=== PATIENT | female | born 1955 | race African-American/Black ===

== ENCOUNTER 2019-04-16 09:24 | Emergency (ER) | payer MEDICARE, SELFPAY ==
--- NOTE | ~2019-04-16 | XR_ITS ---
EXAMINATION: XR chest 2V EXAM DATE: 04/16/2019 10:39 INDICATION: Mid chest pain. TECHNIQUE: Frontal and lateral projections of the chest obtained and reviewed. Comparison is made to prior examination from 01/31/2014. FINDINGS: The lungs are clear. There are no pleural effusions. The cardiomediastinal silhouette is within normal limits. There is no pneumothorax suspected. The bones and soft tissues are unremarkab le. IMPRESSION: No acute cardiopulmonary findings. Reviewed, dictated and finalized at location B. EE
[2019-04-16 09:39] VITALS: BP 118/65; PULSE 84; RESP 18; TEMP 37.2; O2SAT 100
--- NOTE | 2019-04-16 10:23 | ECG_ITS ---
Measurements Intervals [place] Rate: 69 P: 38 NM: 146 QRS: 13 QRSD: 94 T: 0 QT: 382 QTc: 411 Interpretive Statements SINUS RHYTHM NONSPECIFIC T-WAVE ABNORMALITY- INFERIOR LEADS BORDERLINE ECG Electronically Signed On 04-16-2019 13:34:19 SULFONATION EQUIPMENT OPERATOR by Amandeep Carrasquillo D.O.
--- NOTE | 2019-04-16 10:59 | ED.GENADULT ---
HPI - General Adult General Chief complaint: Fall Stated complaint: Chest Pain Source: patient Mode of arrival: ambulatory Limitations: no limitations History of Present Illness HPI narrative: Patient is a 64-year-old female who presents for chest pain and shortness of breath. She reports slip and fall onto her back onto concrete approximately 2 days ago. She denies LOC, she denies use of blood thinners. She reports taking pain medication without relief. She reports pain is increased in left chest. No pain with palpation. She reports increased pain with deep breathing. MD complaint: Chest pain Radiation: non-radiation Related Data Home Medications Medication Instructions Recorded Confirmed amlodipine 10 mg PO DAILY 04/16/19 04/16/19 hydrochlorothiazide 25 mg PO DAILY 04/16/19 04/16/19 lisinopril 40 mg PO DAILY 04/16/19 04/16/19 meloxicam 15 mg PO DAILY 04/16/19 04/16/19 metoprolol succinate 100 mg PO DAILY 04/16/19 04/16/19 oxycodone-acetaminophen 1 tablet PO DIRECTED 04/16/19 04/16/19 topiramate 50 mg PO DAILY 04/16/19 04/16/19 Allergies Allergy/AdvReac Type Severity Reaction Status Date / Time Penicillins Allergy Unknown Itching Verified 08/18/17 08:02 Review of Systems Review of Systems: Narrative: CONSTITUTIONAL: Denies fever, chills, or sweats. EYES: Denies visual changes, redness, or discharge. ENT: Denies rhinorrhea, congestion, sore throat, or otalgia. CARDIOVASCULAR: Reports chest pain, denies palpitations, or edema. RESPIRATORY: Denies cough, reports mild dyspnea. GASTROINTESTINAL: Denies abdominal pain, nausea, vomiting, or diarrhea. GENITOURINARY: Denies dysuria or hematuria. SKIN: Denies rash or itching. MUSCULOSKELETAL: Denies back pain, joint pain, or myalgia. NEUROLOGIC: Denies headache, numbness, dizziness, or weakness. PSYCHIATRIC: Denies anxiety or depression. [facility] Past Medical History Medical History (Updated 04/16/19 @ 11:09 by SALLY Vu) Arthritis Chronic back pain HTN (hypertension) Hypercholesterolemia Postmenopausal Surgical History Surgical History (Updated 04/16/19 @ 11:07 by SALLY Vu) H/O tubal ligation Hx of cholecystectomy Hx of tonsillectomy Social History Social History (Updated 04/16/19 @ 11:07 by SALLY Vu) Smoking status: Never smoker Alcohol intake: never Substance use: never Gender identity (if verbalized by the patient): Female Exam Narrative: Exam Narrative: GENERAL: Well-appearing, well-nourished, and in no acute distress. HEAD: Normocephalic, atraumatic. EYES: EOMI. No redness or drainage. Conjunctiva are normal. ENT: Mucous membranes pink and moist. Nares clear. No rhinorrhea. TMs normal bilaterally. Throat normal. Uvula midline. NECK: AROM. Supple. No lymphadenopathy. CHEST: No respiratory distress. Clear to auscultation. HEART: Regular rate and rhythm. No murmur appreciated. Normal peripheral pulses. GI: Soft, nontender without rebound, or guarding. No distention. Bowel sounds normal in all quadrants. MUSCULOSKELETAL: No bony tenderness. EXTREMITIES: Normal range of motion. No edema. SKIN: Warm, dry, no rash. NEURO: No focal deficits. Alert and oriented x3. Gait steady. PSYCH: Normal affect. No signs of depression or anxiety. Course Vital Signs Vital signs: Vital Signs Temperature 37.2 C 04/16/19 09:39 Pulse Rate 84 04/16/19 09:39 Respiratory Rate 18 04/16/19 09:39 Blood Pressure 118/65 04/16/19 09:39 Pulse Oximetry 100 04/16/19 09:39 Temperature 37.2 C 04/16/19 09:39 Pulse Rate 84 04/16/19 09:39 Respiratory Rate 18 04/16/19 09:39 Blood Pressure 118/65 04/16/19 09:39 Pulse Oximetry 100 04/16/19 09:39 Transfer Transfered to: [facility] Transfer rationale: Higher level care, further testing Accepting physician: Dr. Cervantes Transfer comments: Patient refused EMS transport, patient reports she will drive self and personal vehicle. Patient
== END 2019-04-16 11:18 | disposition short-term general hospital (02) ==
PROVIDERS: Emergency Provider Nurse Practitioner
DX: R07.9 Chest pain, unspecified (principal); M19.90 Unspecified osteoarthritis, unspecified site; I10 Essential (primary) hypertension; E78.00 Pure hypercholesterolemia, unspecified
CPT/HCPCS: 71046; 93005; 99213; G0463

== ENCOUNTER 2019-04-16 12:16 | Emergency (ER) | payer MEDICARE, SELFPAY ==
--- NOTE | 2019-04-16 12:18 | ECG_ITS ---
Measurements Intervals [place] Rate: 72 P: 25 WV: 141 QRS: 5 QRSD: 96 T: 0 QT: 374 QTc: 412 Interpretive Statements SINUS RHYTHM NONSPECIFIC T-WAVE ABNORMALITY- ANT/INF LEADS BASELINE ARTIFACT- I, II, III, AVR, AVL, AVF, V1 BORDERLINE ECG Electronically Signed On 04-16-2019 13:52:55 MANAGER ACTUARIAL by Amandeep Carrasquillo D.O.
[2019-04-16 12:26] VITALS: BP 135/80; PULSE 72; RESP 16; TEMP 36.8; O2SAT 99
[2019-04-16 12:39] LABS: Basophils Percent Auto 0.2 % (0.2-1.2); Eosinophils Percent Auto 0.2 % (0-4.4); Hemoglobin 12.5 g/dL (12.0-15.0); Immature Granulocyte Absolute 0.04 K/mm3 (0.00-0.031); Immature Granulocyte Percent A 0.4 % (0-0.5); Lymphocytes Absolute Auto 1.09 K/mm3 (0.9-3.2); Lymphocytes Percent Auto 10.3 % (18.3-44.2); Mean Corpuscular HGB Conc 32.9 g/dl (32-36); Mean Corpuscular Hemoglobin 30.4 pg (26-34); Mean Corpuscular Volume 92.5 fl (80-100); Mean Platelet Volume 11.3 fl (7.4-10.4); Monocytes Percent Auto 9.7 % (2.6-8.5); Neutrophils Absolute Auto 8.4 K/mm3 (1.3-6.7); Neutrophils Percent Auto 79.2 % (45.5-73.1); Platelet Count Result 298 k/mm3 (150-375); Red Blood Count 4.11 M/mm3 (4.2-5.4); Red Cell Distribution Width 14.8 % (11.5-14.5); White Blood Count 10.6 K/mm3 (4.5-10.0)
[2019-04-16 12:41] LABS: INR 0.9; Prothrombin Time 12.1 Seconds (11.1-14.7)
[2019-04-16 12:42] LABS: Partial Thromboplastin Time 32.6 SECONDS (22.3-36.8)
[2019-04-16 12:44] LABS: Blood Urea Nitrogen 29 mg/dL (7-17); Calcium 9.5 mg/dL (8.4-10.2); Carbon Dioxide 27 mmol/L (22-30); Chloride 100 mmol/L (98-107); Estimated CRCL calculation 50 ml/min; Estimated Glomerular Filt Rate 60; Glucose 120 mg/dL (65-105); Potassium 3.4 mmol/L (3.4-5.0); Sodium 141 mmol/L (137-145)
[2019-04-16 12:55] LABS: Troponin I < 0.012 ng/mL (0.000-0.034)
--- NOTE | 2019-04-16 13:02 | PC.NURSE ---
pt looking for her phone - pt took shuttle to front of hospital to her truck to look for her phone. Awaiting for her to arrive back to ER waiting room.
--- NOTE | 2019-04-16 15:13 | PC.NURSE ---
1415: Pt called multiple times with no answer
== END 2019-04-16 15:13 | disposition left against medical advice (07) ==
PROVIDERS: Emergency Provider Emergency Medicine; PCP Family Medicine
DX: R06.02 Shortness of breath (principal)
CPT/HCPCS: 36415; 80048; 84484; 85025; 85610; 85730; 93005; 99199

== ENCOUNTER → 2019-10-09 09:42 | Outpatient (CLI) | payer MEDICARE, SELFPAY ==
--- NOTE | ~2019-10-09 | MM_ITS ---
EXAMINATION: MM screening dipti BI w prisca HISTORY: Screening mammogram TECHNIQUE: Craniocaudal and mediolateral oblique 3-D tomosynthesis images were obtained and synthetic 2-D images were generated. CAD analysis was submitted and interpreted. COMPARISON: 10/14/2015 bilateral digital screening mammogram BREAST PARENCHYMAL COMPOSITION: There are scattered areas of fibroglandular density. FINDINGS: There is no evidence of suspicious mass, calcification, or architectural distortion to sugg est malignancy in either breast. There has been no suspicious interval change. IMPRESSION: 1. No mammographic evidence of malignancy. 2. Recommend routine screening mammography in one year. BI-RADS Category 1: Negative Reviewed, dictated and finalized at location A.
--- NOTE | ~2019-10-09 | DEXA_ITS ---
Bone Density Report Name: Flavio Carranza Age: 64 Sex: Female Ethnicity: White Date of : 1955 Indication: postmenopausal; screening for osteoporosis; Referring Provider: Candida, Alycia Study: Bone densitometry was performed. Exam Date: October 09, 2019 Accession number: [id number] Bone Density: Region BMD T-score Z-score Classification AP Spine (L1-L4) 0.848 -1.8 0.0 Osteopenia Femoral Neck (Left) 0.986 1.2 2.8 Normal Total Hip (Left) 0.763 -1.5 -0.2 Osteopenia Femoral Neck (Right) 0.735 -1.0 0.5 Normal Total Hip (Right) 0.772 -1.4 -0.1 Osteopenia Total Hip Mean 0.768 -1.5 -0.2 Osteopenia World Health Organization criteria for BMD impression classify patients as: Normal (T-score at or above -1.0), Osteopenia (T-score between -1.0 and -2.5), or Osteoporosis (T-score at or below -2.5). 10-year Fracture Risk(1): Major Osteoporotic Fracture 7.3% Hip Fracture 0.5% Reported Risk Factors: [place] (), Neck BMD=0.735, BMI=38.2 (1) FRAX(R) Version 3.08. Fracture probability calculated for an untreated patient. Fracture probability may be lower if the patient has received treatment. Clinical Information Provided by Patient: Has used the following medications: Vitamin D, Calcium Patient maximum height was 63 Menopause Age: 54 No regular weight bearing exercise Does not regularly consume dairy products Drinks caffeinated beverages Onset of menses at age 12 Number of children 2 Impression: The patient has low bone mass, based on the Total Spine T-score. The patient has an estimated ten-year risk of hip fracture of 0.5% and an estimated ten-year risk of major fracture of 7.3%, based on the WHO FRAX algorithm. Discussion: BONE DENSITY IS LOW AT ONE OR MORE SKELETAL SITES. This patient's lowest T-score is low at one or more skeletal sites. It meets the World Health Organization's (WHO) criteria for ?low bone mass? (T-score between -1.0 and -2.5). The patient's 10-year risk of fracture as calculated by FRAX is less than the threshold where pharmacological therapy is recommended by the National Osteoporosis Foundation (NOF). However, all treatment decisions require clinical judgment and consideration of individual patient factors, including patient preferences, comorbidities, previous drug use, risk factors not captured in the FRAX model (e.g., frailty, falls, vitamin D deficiency, increased bone turnover, interval significant decline in bone density) and possible under or overestimation of fracture risk by FRAX. The patient should follow a healthful lifestyle (good nutrition with adequate calcium and vitamin D, and appropriate weight-bearing exercise). Follow-Up: Consider repeating this study in 2 to 3 years to reassess this patient's status, or sooner if there is some new clinical indication.
== END ==
PROVIDERS: PCP Student in an Organized Health Care Education/Training Program; Visit Provider Registered Nurse
DX: Z12.31 Encounter for screening mammogram for malignant neoplasm of breast (principal); Z78.0 Asymptomatic menopausal state; M85.88 Other specified disorders of bone density and structure, other site; M85.852 Other specified disorders of bone density and structure, left thigh; M85.851 Other specified disorders of bone density and structure, right thigh
CPT/HCPCS: 77063; 77067; 77080

== ENCOUNTER → 2020-08-30 10:18 | Outpatient (CLI) | payer MEDICARE, SELFPAY ==
--- NOTE | ~2020-08-30 | US_ITS ---
EXAMINATION: US right upper quadrant DATE: 08/30/2020 10:45 INDICATION: Abnormal liver function tests. TECHNIQUE: Multiple grayscale and Doppler ultrasound images of the abdomen were obtained. COMPARISON: None FINDINGS: The visualized portions of the head and body of the pancreas are normal. The liver is maya l without focal lesion. No liver surface nodularity. There is normal flow in main portal vein. The ga llbladder is absent. The common duct is normal and measures 7 mm. IMPRESSION: 1. Normal right upper quadrant ultrasound status post cholecystectomy. Reviewed, dictated and finalized at location A.
== END ==
PROVIDERS: Visit Provider Student in an Organized Health Care Education/Training Program
DX: R74.8 Abnormal levels of other serum enzymes (principal)
CPT/HCPCS: 76705

== ENCOUNTER → 2020-10-29 12:50 | Outpatient (CLI) | payer MEDICARE, SELFPAY ==
--- NOTE | ~2020-10-29 | MM_ITS ---
EXAMINATION: MM screening dipti BI w prisca HISTORY: Screening mammogram TECHNIQUE: Craniocaudal and mediolateral oblique 3-D tomosynthesis images were obtained and synthetic 2-D images were generated. CAD analysis was submitted and interpreted. COMPARISON: 10/09/2019, 10/14/2015 bilateral digital screening mammogram examinations BREAST PARENCHYMAL COMPOSITION: The breasts are almost entirely fatty. FINDINGS: There is no evidence of suspicious mass, calcification, or architectural distortion to sugg est malignancy in either breast. There has been no suspicious interval change. IMPRESSION: 1. No mammographic evidence of malignancy. 2. Recommend routine screening mammography in one year. BI-RADS Category 1: Negative Reviewed, dictated and finalized at location A.
== END ==
PROVIDERS: PCP Student in an Organized Health Care Education/Training Program; Visit Provider Student in an Organized Health Care Education/Training Program
DX: Z12.31 Encounter for screening mammogram for malignant neoplasm of breast (principal)
CPT/HCPCS: 77063; 77067

== ENCOUNTER → 2022-01-08 09:44 | Outpatient (CLI) | payer MEDICARE, SELFPAY ==
--- NOTE | ~2022-01-08 | MM_ITS ---
EXAMINATION: MM screening dipti BI w prisca HISTORY: Screening TECHNIQUE: Craniocaudal and mediolateral oblique 3-D tomosynthesis images were obtained and synthetic 2-D images were generated. CAD analysis was submitted and interpreted. COMPARISON: Comparison to multiple prior studies sequentially, with oldest reviewed study dated 10/13. BREAST PARENCHYMAL COMPOSITION: There are scattered areas of fibroglandular density. FINDINGS: There is no evidence of suspicious mass, calcification, or architectural distortion to sugg est malignancy in either breast. There has been no suspicious interval change. IMPRESSION: 1. No mammographic evidence of malignancy. 2. Recommend routine screening mammography in one year. BI-RADS Category 1: Negative Reviewed, dictated and finalized at location A. ER INFLATED PAD
== END ==
PROVIDERS: PCP Student in an Organized Health Care Education/Training Program; Visit Provider Student in an Organized Health Care Education/Training Program
DX: Z12.31 Encounter for screening mammogram for malignant neoplasm of breast (principal)
CPT/HCPCS: 77063; 77067

== ENCOUNTER → 2022-10-12 14:29 | Outpatient (CLI) | payer MEDICARE, SELFPAY ==
--- NOTE | ~2022-10-12 | DEXA_ITS ---
Bone Density Report Name: MARLEY ANN Age: 67 Sex: Female Ethnicity: Black Date of : 1955 Indication: osteopenia; prior fracture; postmenopausal Referring Provider: Vicky, Ignacio Study: Bone densitometry was performed. Exam Date: October 12, 2022 Accession number: [id number] Bone Density: Region BMD T-score Z-score Classification AP Spine (L1-L4) 0.850 -1.8 -0.5 Osteopenia Femoral Neck (Left) 0.830 -0.2 0.5 Normal Total Hip (Left) 0.782 -1.3 -0.5 Osteopenia Femoral Neck (Right) 0.728 -1.1 -0.2 Osteopenia Total Hip (Right) 0.779 -1.3 -0.5 Osteopenia Total Hip Mean 0.781 -1.3 -0.5 Osteopenia World Health Organization criteria for BMD impression classify patients as: Normal (T-score at or above -1.0), Osteopenia (T-score between -1.0 and -2.5), or Osteoporosis (T-score at or below -2.5). 10-year Fracture Risk(1): Major Osteoporotic Fracture 13% Hip Fracture 1.1% Reported Risk Factors: [place] (), Neck BMD=0.728, BMI=38.3, previous fracture (1) FRAX(R) Version 3.08. Fracture probability calculated for an untreated patient. Fracture probability may be lower if the patient has received treatment. Previous Exams: Region Exam Age BMD T-score BMD Change BMD Change Date g/cm2 vs Baseline vs Previous AP Spine(L1-L4) 10/12/2022 67 0.850 -1.8 0.002 0.002 10/09/2019 64 0.848 -1.8 Total Hip(Left) 10/12/2022 67 0.782 -1.3 0.018 0.018 10/09/2019 64 0.763 -1.5 Total Hip(Right) 10/12/2022 67 0.779 -1.3 0.008 0.008 10/09/2019 64 0.772 -1.4 *Denotes significance at 95% confidence level, LSC for AP Spine = 0.022 g/cm2, LSC for Total Hip = 0.027 g/cm2 Clinical Information Provided by Patient: Has had a low trauma fracture Has used the following medications: Vitamin D, Calcium, MTV Patient maximum height was 63.0 Menopause Age: 54 No regular weight bearing exercise Onset of menses at age 12 Number of children 2 Impression: The patient has low bone mass, based on the Total Spine T-score. The patient has an estimated ten-year risk of hip fracture of 1.1% and an estimated ten-year risk of major fracture of 13%, based on the WHO FRAX algorithm. The patient has risk factors, including: previous fracture. No significant bone loss was observed. Discussion: BONE DENSITY IS LOW AT ONE OR MORE SKELETAL SITES. This patient's lowest T-score is low at one or more sk
== END ==
PROVIDERS: PCP Student in an Organized Health Care Education/Training Program; Visit Provider Student in an Organized Health Care Education/Training Program
DX: Z78.0 Asymptomatic menopausal state (principal); M85.88 Other specified disorders of bone density and structure, other site; M85.852 Other specified disorders of bone density and structure, left thigh; M85.851 Other specified disorders of bone density and structure, right thigh
CPT/HCPCS: 77080

== ENCOUNTER → 2023-02-25 10:06 | Outpatient (CLI) | payer MEDICARE, SELFPAY ==
--- NOTE | ~2023-02-25 | MM_ITS ---
EXAMINATION: MM screening [facility] BI w prisca HISTORY: Screening mammogram TECHNIQUE: Craniocaudal and mediolateral oblique 3-D tomosynthesis images were obtained and synthetic 2-D images were generated. CAD analysis was submitted and interpreted. COMPARISON: 01/08/2022, 10/29/2020, 10/09/2019 BREAST PARENCHYMAL COMPOSITION: There are scattered areas of fibroglandular density. FINDINGS: No suspicious mass, calcification, or architectural distortion are identified in either trevon ast to suggest malignancy. There has been no suspicious interval change. IMPRESSION: 1. No mammographic evidence of malignancy. 2. Recommend routine screening mammography in one year. BI-RADS Category 1: Negative Reviewed, dictated and finalized at location A. T CANNER
== END ==
PROVIDERS: PCP Student in an Organized Health Care Education/Training Program; Visit Provider Student in an Organized Health Care Education/Training Program
DX: Z12.31 Encounter for screening mammogram for malignant neoplasm of breast (principal)
CPT/HCPCS: 77063; 77067

== ENCOUNTER 2023-03-23 08:54 | Day surgery (SDC) | payer MEDICARE, SELFPAY ==
[2023-03-03 09:15] VITALS: BMI 37.2
[2023-03-23 10:09] VITALS: BP 167/89; PULSE 106; RESP 18; TEMP 37.2; O2SAT 100; BMI 40.6
[2023-03-23] MEDS: LACTATED RINGERS 1,000 ML 150 ML IV CONT (10:24)
--- NOTE | 2023-03-23 10:24 | WPDANESEPPF ---
Anes - Initial Pre Proc Eval Procedure: Operation Date: 03/23/23 11:30 Proposed Procedures p Colonoscopy - Brandt Cleveland MD Date/Time: 03/23/23 10:24 Surgeon: Brandt Cleveland MD Pre Op Diagnosis: History of Colon Polyps Patient Data Age: 67 Gender: F Height: 1.6 m Weight: 104 kg Last Vital Signs Temp 37.2 C 03/23/23 10:09 Pulse 106 H 03/23/23 10:09 Resp 18 03/23/23 10:09 BP 167/89 H 03/23/23 10:09 Pulse Ox 100 03/23/23 10:09 O2 Del Method Room Air 03/23/23 10:09 Allergies Allergy/AdvReac Type Severity Reaction Status Date / Time clindamycin Allergy Unknown Rash Verified 03/23/23 10:06 Penicillins Allergy Unknown Itching Verified 03/23/23 10:06 Home Medications Medication Instructions Recorded Confirmed Type amlodipine 10 mg tablet 10 mg PO DAILY 04/16/19 03/23/23 History hydrochlorothiazide 25 mg tablet 25 mg PO DAILY 04/16/19 03/23/23 History meloxicam 15 mg tablet 15 mg PO DAILY 04/16/19 03/23/23 History metoprolol succinate 100 mg 100 mg PO DAILY 04/16/19 03/23/23 History tablet,extended release 24 hr oxycodone-acetaminophen 5 mg-325 1 tablet PO DIRECTED 04/16/19 03/23/23 History mg tablet topiramate 50 mg tablet 50 mg PO DAILY 04/16/19 03/23/23 History Patient hx anesthesia problems: none Family hx anesthesia problems: none Results Review: All pre-operative results and documents have been reviewed as part of the pre-operative evaluation. [facility] Past Medical History Medical History (Updated 04/17/19 @ 00:00 by Jayla Landers) Arthritis Chronic back pain HTN (hypertension) Hypercholesterolemia Postmenopausal Surgical History Surgical History (Updated 04/16/19 @ 11:07 by Elizabeth Cardoso, ENTRY LEVEL ACCOUNT MANAGER) H/O tubal ligation Hx of cholecystectomy Hx of tonsillectomy Social History Social History (Updated 04/16/19 @ 11:07 by Elizabeth Cardoso, ENTRY LEVEL ACCOUNT MANAGER) Smoking status: Never smoker Alcohol intake: never Substance use: never Substance use type: does not use Gender identity (if verbalized by the patient): Female Spiritual care concerns: No Anes - Eval Final PreProcedure Day of Procedure 03/23/23 10:24 Patient weight: morbidly obese Heart: regular rate and rhythm Lungs: clear to auscultation Airway: Mallampati scale class II Neurological: alert and oriented Last oral intake: >/= 8 hours ASA classification: III Emergent: no Anesthetic plan: proceed Anesthesia type and monitoring: general GIVS and standard monitoring Results Review: All pre-operative results and documents have been reviewed as part of the pre-operative evaluation. Informed Consent: The patient's anesthetic plan and its attendant risks and benefits were discussed with the patient/family/POA. Questions were solicited and answers provided to the satisfaction of the patient/family/POA.
--- NOTE | 2023-03-23 10:44 | PM.HPGS ---
History of Present Illness History of Present Illness Consent: Risks, benefits, and alternatives have been discussed and questions answered. Patient agrees to proceed with procedure. Chief complaint: History of Colon Polyps Narrative: Flavio Carranza is a 67 year old female presents for screening colonoscopy. Patient found to have adenomatous colon polyp at previous colonoscopy in 2018. Patient reports her current weight appetite and bowel movements are normal. Patient denies abdominal pain. She has had no bleeding. Family history significant that her sister was found to have intra-abdominal cancer of uncertain primary. Review of Systems Review of Systems: Review of systems noncontributory. [facility] Past Medical History Medical History (Updated 03/23/23 @ 10:46 by Brandt Cleveland MD) Arthritis Chronic back pain HTN (hypertension) Hypercholesterolemia Postmenopausal Surgical History Surgical History (Updated 04/16/19 @ 11:07 by Elizabeth Cardoso, STRATEGIC PARTNER DEVELOPMENT MANAGER) H/O tubal ligation Hx of cholecystectomy Hx of tonsillectomy Social History Social History (Updated 04/16/19 @ 11:07 by Elizabeth Cardoso, STRATEGIC PARTNER DEVELOPMENT MANAGER) Smoking status: Never smoker Alcohol intake: never Substance use: never Substance use type: does not use Gender identity (if verbalized by the patient): Female Spiritual care concerns: No Meds Home Medications and Allergies Home Medications Medication Instructions Recorded Confirmed Type amlodipine 10 mg tablet 10 mg PO DAILY 04/16/19 03/23/23 History hydrochlorothiazide 25 mg tablet 25 mg PO DAILY 04/16/19 03/23/23 History meloxicam 15 mg tablet 15 mg PO DAILY 04/16/19 03/23/23 History metoprolol succinate 100 mg 100 mg PO DAILY 04/16/19 03/23/23 History tablet,extended release 24 hr oxycodone-acetaminophen 5 mg-325 1 tablet PO DIRECTED 04/16/19 03/23/23 History mg tablet topiramate 50 mg tablet 50 mg PO DAILY 04/16/19 03/23/23 History Allergies Allergy/AdvReac Type Severity Reaction Status Date / Time clindamycin Allergy Unknown Rash Verified 03/23/23 10:06 Penicillins Allergy Unknown Itching Verified 03/23/23 10:06 Vital Signs Vital Signs - 24 hr 03/23/23 10:09 Temperature 98.9 F Pulse Rate 106 H Respiratory Rate 18 Blood Pressure 167/89 H Pulse Oximetry 100 Oxygen Delivery Room Air Exam Narrative: Physical exam reveals patient to be alert. Vital signs stable. HEENT is unremarkable. Patient is anicteric. Lungs are clear to auscultation and percussion. Heart is without murmur or extra sounds. Abdomen bowel sounds are present soft nontender with no organomegaly. Digital external rectal exam normal. Assessment and Plan Assessment and plan (1) History of colon polyps: Code(s): Z86.010 - Personal history of colonic polyps Status: Acute Assessment and Plan: Patient has a history of colon polyps. Plan for surveillance colonoscopy now and consider this at 5 year intervals.
[2023-03-23] MEDS: SIMETHICONE ORAL SUSPENSION 20 MG/0.3 ML 30 ML BOTTLE 0.6 ML IRRIGATION (11:28)
[2023-03-23 11:37] VITALS: BP 111/66; PULSE 99; RESP 16; O2SAT 100
[2023-03-23 11:47] VITALS: BP 112/59; PULSE 97; RESP 20; O2SAT 100
[2023-03-23 11:57] VITALS: BP 102/51; PULSE 92; RESP 20; O2SAT 100
--- NOTE | 2023-03-23 11:58 | WPDANESPN ---
Anes - Prog Note Post-Op Date/Time: 03/23/23 11:58 Cardiovascular status: normal Respiratory status: normal Airway patency: baseline Mental status: baseline Post-Op hydration status: normal Vital Signs: Last Vital Signs Temp 37.2 C 03/23/23 10:09 Pulse 97 03/23/23 11:47 Resp 20 03/23/23 11:47 BP 112/59 L 03/23/23 11:47 Pulse Ox 100 03/23/23 11:47 O2 Del Method Room Air 03/23/23 11:47 Pain Score (VAS): 0 I/O: Intake & Output 03/22/23 03/23/23 03/23/23 23:59 07:59 15:59 Intake Total 300 Balance 300 Post-procedural complaints: none Patient Feedback: Patient satisfied with anesthetic care. Other Findings: Patient vital signs back to baseline. Patient denies nausea and vomiting. Patient's pain under control. Patient OK for discharge.
== END 2023-03-23 12:09 | disposition home or self-care (01) ==
PROVIDERS: PCP Student in an Organized Health Care Education/Training Program; Visit Provider Internal Medicine Gastroenterology
PROC: 0DJD8ZZ Inspection of Lower Intestinal Tract, Via Natural or Artificial Opening Endoscopic (ICD-10-PCS; CPT 45378; principal; 2023-03-23 11:30)
DX: Z86.010 Personal history of colon polyps (principal); K64.8 Other hemorrhoids
CPT/HCPCS: 45378

== ENCOUNTER 2024-04-30 09:28 | Outpatient (CLI) | payer MEDICARE, SELFPAY ==
--- NOTE | ~2024-04-30 | MM_ITS ---
EXAMINATION: MM screening dipti BI w prisca HISTORY: Screening mammogram TECHNIQUE: Craniocaudal and mediolateral oblique 3-D tomosynthesis images were obtained and synthetic 2-D images were generated. CAD analysis was submitted and interpreted. COMPARISON: 02/25/2023, 01/08/2022, 10/29/2020 BREAST PARENCHYMAL COMPOSITION:Not Dense. The breasts are almost entirely fatty FINDINGS: No suspicious mass, calcification, or architectural distortion are identified in either trevon ast to suggest malignancy. There has been no suspicious interval change. IMPRESSION: No mammographic evidence of malignancy. Recommend routine screening mammography in one year. BI-RADS Category 1: Negative Reviewed, dictated and finalized at location .
== END 2024-04-30 09:29 | disposition home or self-care (01) ==
LOC: MICIMG 09:29
PROVIDERS: PCP Student in an Organized Health Care Education/Training Program; Visit Provider Student in an Organized Health Care Education/Training Program
DX: Z12.31 Encounter for screening mammogram for malignant neoplasm of breast (principal)
CPT/HCPCS: 77063; 77067

== ENCOUNTER 2025-01-10 13:53 | Outpatient (CLI) | payer MEDICARE, SELFPAY ==
[2025-01-10 14:53] LABS: Albumin Level 4.1 g/dL (3.5-5.1); Anion Gap 8 mmol/L (4-12); Blood Urea Nitrogen 17 mg/dL (7-17); Calcium 9.4 mg/dL (8.4-10.2); Carbon Dioxide 22 mmol/L (22-30); Chloride 111 mmol/L (98-107); Creatine Kinase 51 U/L (30-135); Estimated Glomerular Filt Rate 49; Glucose 103 mg/dL (65-110); Hematocrit 38.3 % (37.0-47.0); Hemoglobin 12.0 g/dL (12.0-15.0); Mean Corpuscular HGB Conc 31.3 g/dl (32-36); Mean Corpuscular Hemoglobin 28.9 pg (26-34); Mean Corpuscular Volume 92.3 fl (80-100); Platelet Count Result 299 k/mm3 (150-375); Potassium 3.5 mmol/L (3.4-5.0); Red Blood Count 4.15 M/mm3 (4.2-5.4); Sodium 141 mmol/L (137-145); White Blood Count 8.1 K/mm3 (4.5-10.0)
[2025-01-10 15:05] LABS: Parathyroid Intact 46.3 pg/mL (14.5-75.2)
[2025-01-10 15:19] LABS: Add Urine Microscopic? YES; Appearance Urine Cloudy (Clear); Glucose Urine UA Negative (Negative); Leukocyte Esterase Ur 3+ LEU/UL (Negative); Nitrate Urine Negative (Negative); Non Pathogenic Casts 0-2; Specific Grav Ur 1.021 (1.001-1.035)
[2025-01-10 17:30] LABS: Total Protein Urine Random 21 mg/dL; Ur Ttl Prot Creatinine Ratio 0.07 mg/mg (0-0.20)
[2025-01-11 13:09] LABS: ANA by IFA Rfx Titer/Pattern Negative (.)
[2025-01-15 09:08] LABS: Immunoglobulin A, Qn 192 mg/dL (87-352); Immunoglobulin G, Qn 1277 mg/dL (586-1602); Immunoglobulin M, Qn 226 mg/dL (26-217)
== END 2025-01-10 13:54 | disposition home or self-care (01) ==
PROVIDERS: PCP Student in an Organized Health Care Education/Training Program; Visit Provider Internal Medicine Nephrology
DX: R94.4 Abnormal results of kidney function studies (principal)
CPT/HCPCS: 36415; 80069; 81001; 82550; 82570; 82784; 83970; 84156; 85027; 85652; 86038; 86160; 86162; 86334; 86335

== ENCOUNTER 2025-01-16 07:56 | Outpatient (CLI) | payer MEDICARE, SELFPAY ==
--- NOTE | ~2025-01-16 | US_ITS ---
EXAMINATION: US renal BI, 01/16/2025 8:05 [employer] HISTORY: R94.4 - Abnormal results of kidney function studies Comparison: None Technique: Santana-scale and color Doppler images were obtained. Findings: KIDNEYS: The renal cortices are intact with no solid masses or cysts. Right Kidney: Right kidney 9.5 x 4.8 x 4.5 cm, normal. Left Kidney: Left kidney 8.7 x 4.9 x 5 cm, mid pole renal calculus 8 x 4 x 8 mm, no hydronephrosis. Bladder: The bladder is unremarkable. . Impression: 1. Left renal calculus Reviewed, dictated and finalized at location P. [employer] Impression: 1. Left renal calculus
--- OUTSIDE RECORDS SUMMARY | 2025-01-16 08:03 | XMS_ITS | Data Portability ---
Author Organization NATY QUENTINLauren Maravilla Address [address] [place] [address] Assessment No assessment recorded. Plan of Treatment Reminders Order Date Submit Date Provider Last Modified By Organization Details Last Modified Time Details Appointments None recorded. Lab pap, IG + HPV, cervical 2015 016 [facility], [address], [address], [place], [address], 6 06:05:25 bacterial vaginosis + vaginitis panel, vaginal 2015 016 [facility], [address], [address], [place], [address], 6 16:08:08 Referral None recorded. Procedures None recorded. Surgeries None recorded. Imaging None recorded. Medication Orders None recorded. Patient TargetsNo targets recorded. Patient InstructionsNo instructions recorded. Reason for Referral None Reported. Results Created Date Observation Date Name Description Value Unit Range Abnormal Flag Note LastModifiedBy Organization Detail LastModifiedTime 07/09/19 16 07/13/2015 bacte rial vagin osis + vagin itis panel , vagin al atopobium vaginae LOW - 0 score Not Available [facility] ([facility]) [address] [facility], [place], [address], 07/13/2015 16:08:08 07/09/19 16 07/13/2015 bacte rial vagin osis + vagin itis panel , vagin al bvab 2 LOW - 0 score Not Available [facility] ([facility]) [address] [place], [address], 07/13/2015 16:08:08 07/09/19 16 07/13/2015 bacte rial vagin osis + vagin itis panel , vagin al megasphaera 1 LOW - 0 score CALCU LATE TOTAL SCORE BY SUSANNE Mayorga THE 3 INDIV IDUAL BACTE RIAL VAGIN OSIS (BV) MARKE R SCORE S TOGET HER. TOTAL SCORE IS INTER PRETE D FOLLO WS: TOTAL SCORE 0-1: INDIC ATES THE ABSEN CE OF BV. TOTAL SCORE 2: INDET ERMIN ATE FOR BV. ADDIT IONAL CLINI FIORELLA DATA SHOUL D BE EVALU ATED TO ESTAB AIDA A DIAGN OSIS. TOTAL SCORE 3-6: INDIC ATES THE PRESE NCE OF BV. THIS TEST WAS DEVEL OPED AND ITS PERFO RMANC E BROOKE CTERI STICS DETER MINED BY [facility]. IT HAS NOT BEEN CLEAR ED OR APPRO TARYN BY THE FOOD AND DRUG ADMIN ISTRA TION. THE FDA HAS DETER MINED THAT SUCH CLEAR ANCE OR APPRO KADE IS NOT NECES CONCHA. Not Available [facility] ([facility]) [address] [facility], [place], [address], 07/13/2015 16:08:08 07/09/19 16 07/13/2015 bacte rial vagin osis + vagin itis panel , vagin al stacia albicans, PAT NEGATI VE negati ve Not Available [facility] ([facility]) [address] [facility], [place], [address], 07/13/2015 16:08:08 07/09/19 16 07/13/2015 bacte rial vagin osis + vagin itis panel , vagin al stacia glabrata, PAT NEGATI VE negati ve THIS TEST WAS DEVEL OPED AND ITS PERFO RMANC E BROOKE CTERI STICS DETER MINED BY [facility]. IT HAS NOT BEEN CLEAR ED OR APPRO TARYN BY THE FOOD AND DRUG ADMIN ISTRA TION. THE FDA HAS DETER MINED THAT SUCH CLEAR ANCE OR APPRO KADE IS NOT NECES CONCHA. Not Available [facility] ([facility]) [address] [facility], [place], [address], 07/13/2015 16:08:08 07/09/19 16 07/13/2015 bacte rial vagin osis + vagin itis panel , vagin al trich vag by PAT NEGATI VE negati ve Not Available [facility] ([facility]) [address] [place], [address], 07/13/2015 16:08:08 07/09/19 16 07/13/2015 bacte rial vagin osis + vagin itis panel , vagin al chlamydia trachomatis, PAT NEGATI VE negati ve Not Available [facility] ([facility]) [address] [facility], [place], [address], 07/13/2015 16:08:08 07/09/19 16 07/13/2015 bacte rial vagin osis + vagin itis panel , vagin al neisseria gonorrhoeae, PAT NEGATI VE negati ve Not Available [facility] ([facility]) [address] [place], [address], 07/13/2015 16:08:08 07/10/19 16 07/14/2015 pap, IG + HPV, cervi fiorella diagnosis: COMMEN T NEGAT ISAIAS FOR INTRA EPITH ELIAL LESIO N AND MALOSCAR PRIETO . CELLU LAR DYER ES ASSOC IATED WITH ATROP HY ARE PRESE NT. Not Available [facility] ([facility]) [address] [place], [address], 07/15/2015 06:05:25 07/10/19 16 07/14/2015 pap, IG + HPV, cervi fiorella specimen adequacy: COMMEN T SATIS FACTO RY FOR EVALU ATION . ENDOC ERVIC AL COMPO NENT MAY NOT BE DISTI NGUIS HED IN CASES OF ATROP HY. Not Available [facility] ([facility]) [address] [place], [address], 07/15/2015 06:05:25 07/10/19 16 07/14/2015 pap, IG + HPV, cervi fiorella clinician provided ICD10: JEANNE Roe Z01.4 19 Not Available [facility] ([facility]) [address] [place], [address], 07/15/2015 06:05:25 07/10/19 16 07/14/2015 pap, IG + HPV, cervi fiorella performed by: JEANNE ALEXANDRA, PRAVEEN Roe (ASCP ) Not Available [facility] ([facility]) [address] [facility], [place], [address], 07/15/2015 06:05:25 07/10/19 16 07/14/2015 pap, IG + HPV, cervi fiorella . . Not Available [facility] ([facility]) [address] [place], [address], 07/15/2015 06:05:25 07/10/19 16 07/14/2015 pap, IG + HPV, cervi fiorella note: JEANNE Roe THE PAP SMEAR IS A SCREE DEVANTE TEST DESIG MAYR TO AID IN THE DETEC TION OF KRISTOPHER LIGNA NT AND MALIG NANT CONDI TIONS OF THE UTERI NE CERVI X. IT IS NOT A DIAGN OSTIC PROCE DURE AND SHOUL D NOT BE USED THE SOLE MEANS OF DETEC TING CERVI FIORELLA CANCE R. BOTH FALSE -POSI TIVE AND FALSE -NEGA TIVE REPOR TS DO OCCUR . Not Available [facility] ([facility]) [address] [facility], [place], [address], 07/15/2015 06:05:25 07/10/19 16 07/14/2015 pap, IG + HPV, cervi fiorella test methodology: JEANNE Roe THIS LIQUI D BASED THINP REP(R ) PAP TEST WAS SCREE MARY WITH THE USE OF AN IMAGE GUIDE Uriah Huff. Not Available [facility] ([facility]) [address] [place], [address], 07/15/2015 06:05:25 07/10/19 16 07/14/2015 pap, IG + HPV, cervi fiorella HPV aptima NEGATI VE negati ve THIS TEST DETEC TS FOURT EEN HIGH- RISK HPV TYPES (16/1 8/31/ 33/35 /39/4 5/ 51/52 /56/5 8/59/ 66/68 ) WITHO UT DIFFE RENTI ATION . Not Available [facility] ([facility]) [address] [facility], [place], [address], 07/15/2015 06:05:25 Result Notes None recorded. Procedures Surgical History Date Name Laterality Status Provider Name and Address Organization Details Recorded Time Cholecystectomy completed Dwight Gottlieb LPN [place] [facility] 07/09/2015 15:33:22 Tubal Ligation completed Dwight Gottlieb LPN [place] [facility] 07/09/2015 15:33:22 Gastric Bypass completed Dwight Gottlieb LPN [facility] 07/09/2015 15:33:22 Imaging Results None recorded. Procedure Notes None recorded. Medical Equipment None Reported. Allergies Allergen ID Allergen Name Allergen Category Reaction Reaction Severity Criticality Documentation Date Start Date Code Code System Note Provider Name and Address Organization Details Recorded Time 20993 Product containin g penicilli n (product) medicatio n hives moderate Not available 07/09/2015 03085 8001 SNOMED Dwight Gottlieb LPN [place], [place] - [facility] 6 15:28:40 Medications Name Sig Start Date Stop Date Status Note LastModified by Organization Details LastModified Time hydrocodone 5 mg-acetaminophen 325 mg tablet active Not Available Not Availabl e Not Available acetaminophen 300 mg-codeine 30 mg tablet active Not Available Not Available Not Available sulfamethoxazole 800 mg-trimethoprim 160 mg tablet active Not Available Not Availabl e Not Available Vitals Date Recorded Body weight Body height Body mass index (BMI) Systolic And Diastolic Provider Name and Address Organization Details Last Updated DateTime 07/09/2015 85226.180 82 g 160.02 cm 32.9 kg/m2 120/78 mm[Hg] Dwight Gottlieb LPN [facility] 07/09/2015 15:33:23 Social History None recorded. Functional Status None recorded. Mental Status None recorded. Family History Nothing Reported. Medical History Condition Response Other N High Blood Pressure Y Breast Cancer N Thyroid Problems N Kidney or Bladder Problems N GI Problems N Depression N Blood Clots N Lung Disease N Acne N Breast Problem N Eating Disorder N Anemia N Anesthesia Complications N Headaches/Migraines N Anxiety Disorder N Diabetes N Ovarian Cancer N Muscle, Joint, or Bone Problems N Blood Transfusions N Seizures/Epilepsy N Polyps N Infertility N Acid Reflux (GERD) N Cancer N Abuse/Domestic Violence N Asthma N Endometriosis N High Cholesterol N Hepatitis N Liver Disease N Heart Disease N Pre-Eclampsia N Osteoporosis N Gynecological HistoryNo gynecological history recorded. Obstetrics History GPAL:G 0 P 0 0 0 0 Past Encounters Encounter ID Performer Location Encounter Start Date Encounter Closed Date Diagnosis/Indication Diagnosis SNOMED-CT Code Diagnosis ICD10 Code Diagnosis IMO Codes Diagnosis Note [id number] Joaquin Adams MD [facility] ([employer] SUPERVISOR) [address] [place] [address] 07/09/2015 14:33:59 07/11/2015 15:19:16 Gynecologic examination 70191656 Z01.419 Health Concerns Section Related Observation LastModified by Organization Detai ls LastModified Time None Recorded Concern Status LastModified by Organization Details LastModified Time None Recorded Advance Directives Directive None Recorded Payers Insurance Date Sequence Insurance Name Policy Number Policy Chavez Covered Member ID Chavez Member ID Guarantor Name 07/06/2015 1 [facility] PRIOR TO 2020 (MEDICAID REPLACEMENT - HMO) Flavio Carranza [id number] Flavio Carranza Notes Date Note Type Note Provider Name and Address Organization Details Recorded Time 6 text/html Annual GYNReported by PatientGenitourinary symptomsFor menstrual cycle, patient reportsnormal menses. For urinary symptoms, patient reportsno hematuriaandno incontinence. For vulva, patient reportsno genital lesion. For vagina, patient reportsnormal vaginal discharge.Breast symptomsFor breast, patient reportsno breast pain,no breast lump, andno nipple discharge.ContraceptionFo r current contraception, patient reportstubal ligation(post menopausal).Endocrine symptomsFor sexual complaints, patient reportsno sexual complaints,no pain during intercourse, andnormal libido. For menopausal symptoms, patient reportsno menopausal symptomsandnormal vaginal lubrication.Psychological symptomsFor psychological symptoms, patient reportsno depression,no anxiety, andno pmdd.Preventative measuresFor preventive measures, patient reportsencourage self breast examination,encourage regular exercise,encourage no tobacco use, andencourage regular mammograms starting age 40. Joaquin whiting, [place] - [facility] 07/09/2015 17:42:50 OBGyn Episode No OBEpisode recorded.
--- OUTSIDE RECORDS SUMMARY | 2025-01-16 08:03 | XMS_ITS | Clinical Summary ---
Author Organization [facility] Address [address], [facility] [address] [place] [address] Phone Care Team Providers Care Dispersion Mixer Name Role Phone Jsee Walsh MD Primary Care Provider + [phone] Brandt Johnson DO Unavailable [phone] Allergies Active Allergy Reactions Criticality Noted Date Comments Penicillins Unknown 10/21/2017 Medications polyethylene glycol (MIRALAX) Powder Use entire bottle of 255 grams of miralax for Colon prep as directed by office. 255 g 06/14/2017 Active calcium & magnesium carbonates (MYLANTA) 311-232 MG Tablet Take 1 Tab by mouth as needed. Active Zinc 50 MG Capsule Take by mouth. Active Multiple Vitamin (MULTIVITAMINS PO) Take by mouth. Active Garcinia Cambogia-Chromi um 500-200 MG-MCG Tablet Take by mouth. Active fish oil-omega-3 fatty acids 1000 MG Capsule Take 1,000 mg by mouth daily. Active Ascorbic Acid (VITAMIN C) 1000 MG Tablet Take by mouth. Active Clindamycin HCl 300 MG Capsule Take 300 mg by mouth every 8 hours. Active Immunizations Immunization Administration Dates Next Due Covid-19, Mrna, Lnp-s, Pf, 30 Mcg/0.3 Ml Dose (Lorena mejia) 04/29/2020 Social History Tobacco Use Types Packs/Day Years Used Date Smoking Tobacco: Never Smokeless Tobacco: Never Alcohol Use Standard Drinks/Week Comments Yes 0 (1 standard drink = 0.6 oz pur e alcohol) former social drinker Comments Unknown Sex and Gender Information Value Date Recorded Sex Assigned at Not on file Legal Sex Female 3:12 PM CDT Gender Identity Not on file Sexual Orientation Not on file Plan of Treatment Health Maintenance Due Date Last Done Comments Hepatitis C Virus (HCV) Screening 1955 Cologuard 1999 Immunochemical Fecal Occult Blood 1999 Zoster Immunization (1 of 2) 2004 Medicare Initial AWV [id number] 07/22/2018 Pneumococcal Immunization (5 0+ years) (2 of 2 - PCV20 or PCV21) 10/02/2020 10/03/2019 Colonoscopy 08/18/2022 08/18/2017 Colorectal Cancer Screening 08/18/2022 Influenza Immunization (#1) 2024 10/25/2019 SARS-COV-2 Immunization ( season) 2024 01/31/2021, 05/23/2020, 04/29/2020 Respiratory Syncytial Virus (RSV) Immunization (Adult) (1 - 1-dose 75+ series) 2029 DTaP/Tdap/Td Immunization Discontinued 10/03/2019 Pneumococcal Immunization Combined Discontinued 10/03/2019 TdaP Immunization Completed 10/03/2019 Hepatitis B Immunization Aged Out No longer eligible based on patient's age to complete this topic Human Papillomavirus (HPV) Immunization Aged Out No longer eligible based on patient's age to complete this topic Meningococcal Immunization (ACWY) Aged Out No longer eligible based on patient's age to complete this topic Rotavirus Immunization Aged Out No lo nger eligible based on patient's age to complete this topic Procedures Procedure Name Priority Date/Time Associated Diagnosis Comments COLONOSCOPY Routine 08/18/2017 from Last 3 Months or Most Recently Relevant to Health Maintenance Results * COLONOSCOPY (08/18/2017) us Brandt Johnson DO PROCEDURE/MINOR SURGICAL ORDERA BLES Final Result from Last 3 Months or Most Recently Relevant to Health Maintenance Insurance MEDICARE [facility] on file Care Teams Dispersion Mixer Relationship Specialty Start Date End Date Jese Walsh MD [address] [place] [address] [phone] PCP - General Family Medicine 05/27/17 Brandt Johnson DO [address] [place] [address] [phone] Gastroenterology 08/26/17
== END 2025-01-16 07:57 | disposition home or self-care (01) ==
PROVIDERS: PCP Student in an Organized Health Care Education/Training Program; Visit Provider Internal Medicine Nephrology
DX: R94.4 Abnormal results of kidney function studies (principal); N20.0 Calculus of kidney
CPT/HCPCS: 76770